=== PATIENT | male | born 1940 | race Two or more races ===

== ENCOUNTER 2022-03-03 10:43 | Emergency (ER) | payer OTHER ==
[~2022-03-03] VITALS: Ht 177.8 cm; Wt 99.8 kg
[2022-03-03] MEDS ORDERED: SYNTHROID75 MCG PO (11:14)
[2022-03-03] MEDS ORDERED: ATORVASTATIN CA40 MG PO (11:14)
[2022-03-03] MEDS ORDERED: AMLODIPINE BESYL5 MG PO (11:14)
[2022-03-03] MEDS ORDERED: FAMOTIDINE40 MG PO (11:15)
== END 2022-03-03 12:50 ==
LOC: ER 10:43
DX: M54.32 Sciatica, left side (principal); Z88.6 Allergy status to analgesic agent; I10 Essential (primary) hypertension; J98.11 Atelectasis; J44.9 Chronic obstructive pulmonary disease, unspecified; G47.30 Sleep apnea, unspecified; E78.5 Hyperlipidemia, unspecified; M19.90 Unspecified osteoarthritis, unspecified site; E03.9 Hypothyroidism, unspecified